=== PATIENT | female | born 1950 | race Caucasian/White ===

== ENCOUNTER 2024-01-08 11:46 | Inpatient (IN) | payer MEDICARE, BC ==
[2024-01-08 12:39] LABS: BASOPHILS ABSOLUTE AUTO 0.03 10^3/uL (0.00-0.50); BASOPHILS PERCENT AUTO 0.2 % (0-1); EOSINOPHILS ABSOLUTE AUTO 0.01 10^3/uL (0.00-1.50); EOSINOPHILS PERCENT AUTO 0.1 % (0-6); HEMATOCRIT 44.5 % (37.0-47.0); HEMOGLOBIN 14.1 g/dL (12.0-16.0); IMMATURE GRAN ABSOLUTE AUTO 0.04 10^3/uL (0.00-0.49); IMMATURE GRAN PERCENT AUTO 0.3 % (0.0-4.9); LYMPHOCYTES ABSOLUTE AUTO 0.79 10^3/uL (0.60-5.00); MEAN CORPUSCULAR HGB CONC 31.7 g/dL (32.0-36.0); MEAN CORPUSCULAR VOLUME 100.9 fL (83.0-97.0); MONOCYTES ABSOLUTE AUTO 1.08 10^3/uL (0.00-1.50); MONOCYTES PERCENT AUTO 8.3 % (0-10); NEUTROPHILS ABSOLUTE AUTO 11.11 x10^3/uL (1.80-8.00); NEUTROPHILS PERCENT AUTO 85.1 % (41-71); PLATELET COUNT,PLT 218 10^3/uL (150-400); RED BLOOD CELL COUNT 4.41 x10^6/uL (4.00-5.50); WHITE BLOOD CELL COUNT,WBC 13.1 10^3/uL (4.0-11.0)
[2024-01-08 12:55] LABS: ALBUMIN 3.9 g/dL (3.4-5.0); BILIRUBIN TOTAL 0.6 mg/dL (0.0-1.0); CALCIUM 8.9 mg/dL (8.4-10.1); CREATININE 0.9 mg/dL (0.6-1.0); EST CRCL DRUG DOSING (CG) 45.16 mL/min; MAGNESIUM 2.1 mg/dL (1.8-2.4); POTASSIUM,K 4.7 mEq/L (3.5-5.0); PROTEIN TOTAL,TP 8.8 g/dL (6.4-8.2)
[2024-01-08 13:08] LABS: APPEARANCE,URINE CLEAR (CLEAR); BILIRUBIN,URINE NEGATIVE (NEGATIVE); COLOR,URINE YELLOW (YELLOW); GLUCOSE,URINE NEGATIVE (NEGATIVE); KETONES,URINE NEGATIVE (NEGATIVE); LEUKOCYTE ESTERASE,URINE NEGATIVE (NEGATIVE); NITRITE,URINE NEGATIVE (NEGATIVE); OCCULT BLOOD,URINE SMALL (NEGATIVE); PROTEIN,URINE 100 mg/dL (NEGATIVE)
[2024-01-08 13:31] LABS: BACTERIA,URINE OCCASIONAL /HPF (NOT SEEN); EPITHELIAL CELLS,URINE OCCASIONAL /HPF (NOT SEEN); MUCUS,URINE MODERATE /HPF (NOT SEEN); WBC,URINE 0-5 /HPF (0-5)
[2024-01-08] MEDS: Sodium Chloride 0.9% 1,000 ML IV ONE (13:53)
[2024-01-08] MEDS: Piperacillin/Tazobactam 4.5 GM in Sodium Chloride 0.9% 100 ML IV ONE (14:00)
[2024-01-08] MEDS: Clindamycin Phosphate in D5W 600 MG in Premix Bag 1 BAG IV ONE (14:05)
[2024-01-08] MEDS: Sodium Chloride 0.9% 500 ML IV SCH (14:45)
[2024-01-08] MEDS ORDERED: Polyethylene Glycol 3350 Powder 17 GM Packet PO PRN (14:49)
[2024-01-08] MEDS ORDERED: Ondansetron 4 MG/2 ML SDV IV PRN (14:49)
[2024-01-08] MEDS ORDERED: Docusate Sodium 100 MG Cap PO PRN (14:49)
[2024-01-08] MEDS: Acetaminophen 325 MG Tab PO PRN (17:20)
[2024-01-08] MEDS: Sodium Chloride 0.9% 1,000 ML IV SCH (19:30)
[2024-01-08] MEDS: Melatonin 3 MG Tab PO SCH (19:37)
[2024-01-08] MEDS: Docusate Sodium 100 MG Cap PO SCH (19:37)
[2024-01-08] MEDS: Non-Formulary Medication 1 Each (Alendronate Sodium [Alendronate Sodium] 70 MG Tablet) PO SCH (21:12)
[2024-01-08] MEDS: Piperacillin/Tazobactam 4.5 GM in Sodium Chloride 0.9% 100 ML IV SCH (21:39)
[2024-01-09] MEDS: Acetaminophen 650 MG Supp RECTAL PRN (03:52)
[2024-01-09 07:36] LABS: BASOPHILS ABSOLUTE AUTO 0.03 10^3/uL (0.00-0.50); BASOPHILS PERCENT AUTO 0.4 % (0-1); HEMATOCRIT 39.2 % (37.0-47.0); HEMOGLOBIN 12.4 g/dL (12.0-16.0); IMMATURE GRAN ABSOLUTE AUTO 0.03 10^3/uL (0.00-0.49); IMMATURE GRAN PERCENT AUTO 0.4 % (0.0-4.9); LYMPHOCYTES ABSOLUTE AUTO 0.84 10^3/uL (0.60-5.00); LYMPHOCYTES PERCENT AUTO 10.9 % (24-44); MEAN CORPUSCULAR HEMOGLOBIN 31.7 pg (27.0-32.0); MEAN CORPUSCULAR HGB CONC 31.6 g/dL (32.0-36.0); MEAN CORPUSCULAR VOLUME 100.3 fL (83.0-97.0); MONOCYTES ABSOLUTE AUTO 0.66 10^3/uL (0.00-1.50); MONOCYTES PERCENT AUTO 8.6 % (0-10); NEUTROPHILS ABSOLUTE AUTO 6.14 x10^3/uL (1.80-8.00); NEUTROPHILS PERCENT AUTO 79.7 % (41-71); PLATELET COUNT,PLT 213 10^3/uL (150-400); RED BLOOD CELL COUNT 3.91 x10^6/uL (4.00-5.50); WHITE BLOOD CELL COUNT,WBC 7.7 10^3/uL (4.0-11.0)
[2024-01-09 07:45] LABS: CALCIUM 8.2 mg/dL (8.4-10.1); CREATININE 0.8 mg/dL (0.6-1.0); EST CRCL DRUG DOSING (CG) 40.38 mL/min; POTASSIUM,K 3.5 mEq/L (3.5-5.0)
[2024-01-09] MEDS: Cholecalciferol (Vitamin D3) 25 MCG Tab PO SCH (08:25)
[2024-01-09] MEDS: QUEtiapine 25 MG Tab PO SCH ×2 (08:25→12:07)
[2024-01-09] MEDS: Propranolol 10 MG Tab PO SCH (08:25)
[2024-01-09] MEDS: traZODone 50 MG Tab PO SCH ×2 (08:25→20:08)
[2024-01-09] MEDS: Aspirin 81 MG Tab.EC PO SCH (08:26)
[2024-01-09] MEDS: Oxybutynin 5 MG Tab.ER PO SCH (08:26)
[2024-01-09] MEDS: Ascorbic Acid 500 MG Tab PO SCH (08:27)
[2024-01-09] MEDS ORDERED: Bisacodyl 10 MG Supp RECTAL PRN (10:45)
[2024-01-09] MEDS: Donepezil 5 MG Tab PO SCH (12:00)
[2024-01-09] MEDS: VANCOmycin 1 GM/200 ML 1 GM in Premix Bag 1 BAG IV SCH (12:01)
[2024-01-09] MEDS: Enoxaparin 40 MG/0.4 ML Syringe SUBCUT SCH (12:06)
[2024-01-09] MEDS: Gabapentin 300 MG Cap PO SCH (14:13)
[2024-01-09] MEDS: Acetaminophen 500 MG Tab PO SCH (14:13)
[2024-01-09] MEDS: Memantine 10 MG Tab PO SCH (20:08)
[2024-01-09] MEDS: risperiDONE 1 MG Tab PO SCH (20:08)
[2024-01-10] MEDS: amLODIPine 2.5 MG Tab PO SCH (07:38)
[2024-01-10] MEDS: Cyanocobalamin (Vitamin B12) 1,000 MCG Tab PO SCH (07:39)
[2024-01-10] MEDS: Sertraline 100 MG Tab PO SCH (07:42)
[2024-01-10] MEDS: Multivitamin Tab PO SCH (07:43)
[2024-01-10 07:58] LABS: BASOPHILS ABSOLUTE AUTO 0.07 10^3/uL (0.00-0.50); BASOPHILS PERCENT AUTO 0.7 % (0-1); EOSINOPHILS ABSOLUTE AUTO 0.17 10^3/uL (0.00-1.50); EOSINOPHILS PERCENT AUTO 1.7 % (0-6); HEMOGLOBIN 10.6 g/dL (12.0-16.0); IMMATURE GRAN ABSOLUTE AUTO 0.02 10^3/uL (0.00-0.49); IMMATURE GRAN PERCENT AUTO 0.2 % (0.0-4.9); LYMPHOCYTES PERCENT AUTO 11.9 % (24-44); MEAN CORPUSCULAR HEMOGLOBIN 31.7 pg (27.0-32.0); MEAN CORPUSCULAR HGB CONC 31.2 g/dL (32.0-36.0); MEAN CORPUSCULAR VOLUME 101.8 fL (83.0-97.0); MONOCYTES ABSOLUTE AUTO 0.97 10^3/uL (0.00-1.50); MONOCYTES PERCENT AUTO 9.7 % (0-10); NEUTROPHILS ABSOLUTE AUTO 7.62 x10^3/uL (1.80-8.00); NEUTROPHILS PERCENT AUTO 75.8 % (41-71); PLATELET COUNT,PLT 197 10^3/uL (150-400); RED BLOOD CELL COUNT 3.34 x10^6/uL (4.00-5.50); WHITE BLOOD CELL COUNT,WBC 10.1 10^3/uL (4.0-11.0)
[2024-01-10 08:21] LABS: C-REACTIVE PROTEIN 0.51 mg/dL (<=0.50); CALCIUM 7.8 mg/dL (8.4-10.1); CREATININE 0.7 mg/dL (0.6-1.0); EST CRCL DRUG DOSING (CG) 46.15 mL/min; POTASSIUM,K 3.2 mEq/L (3.5-5.0)
[2024-01-10] MEDS: VANCOmycin 1.5 GM/300 ML 1.5 GM in Premix Bag 1 BAG IV SCH (11:40)
[2024-01-10] MEDS ORDERED: VANCOmycin 1.25 GM/250 ML 1.25 GM in Premix Bag 1 BAG IV SCH (12:00)
[2024-01-10] MEDS: Sodium Chloride 0.9% 1,000 ML IV ONE (13:37)
[2024-01-10] MEDS: Potassium Chloride Riders 20 MEQ in Premix Bag 1 BAG IV SCH (13:38)
[2024-01-10] MEDS: Potassium Chloride 20 MEQ Tab.ER PO ONE (14:14)
[2024-01-11 07:55] LABS: BASOPHILS ABSOLUTE AUTO 0.06 10^3/uL (0.00-0.50); BASOPHILS PERCENT AUTO 0.7 % (0-1); EOSINOPHILS ABSOLUTE AUTO 0.22 10^3/uL (0.00-1.50); EOSINOPHILS PERCENT AUTO 2.4 % (0-6); HEMATOCRIT 35.3 % (37.0-47.0); HEMOGLOBIN 11.2 g/dL (12.0-16.0); IMMATURE GRAN ABSOLUTE AUTO 0.04 10^3/uL (0.00-0.49); IMMATURE GRAN PERCENT AUTO 0.4 % (0.0-4.9); LYMPHOCYTES ABSOLUTE AUTO 0.96 10^3/uL (0.60-5.00); LYMPHOCYTES PERCENT AUTO 10.6 % (24-44); MEAN CORPUSCULAR HEMOGLOBIN 32.1 pg (27.0-32.0); MEAN CORPUSCULAR HGB CONC 31.7 g/dL (32.0-36.0); MEAN CORPUSCULAR VOLUME 101.1 fL (83.0-97.0); MONOCYTES ABSOLUTE AUTO 0.67 10^3/uL (0.00-1.50); MONOCYTES PERCENT AUTO 7.4 % (0-10); NEUTROPHILS ABSOLUTE AUTO 7.12 x10^3/uL (1.80-8.00); NEUTROPHILS PERCENT AUTO 78.5 % (41-71); PLATELET COUNT,PLT 198 10^3/uL (150-400); RED BLOOD CELL COUNT 3.49 x10^6/uL (4.00-5.50); WHITE BLOOD CELL COUNT,WBC 9.1 10^3/uL (4.0-11.0)
[2024-01-11 08:00] LABS: C-REACTIVE PROTEIN 2.05 mg/dL (<=0.50); CALCIUM 8.1 mg/dL (8.4-10.1); CREATININE 0.7 mg/dL (0.6-1.0); EST CRCL DRUG DOSING (CG) 46.15 mL/min; POTASSIUM,K 3.5 mEq/L (3.5-5.0)
[2024-01-11 08:47] VITALS: PULSE 68
[2024-01-11 08:48] VITALS: BP 176/77
== END 2024-01-11 11:15 | disposition home or self-care (01) | DRG 603 ==
LOC: CC.ED 11:46 → CC.MS 13:42 → MERGE 13:42 → UNDOADMIN 14:24 → CC.MS 14:24
PROVIDERS: ADMIT Nurse Practitioner; ATTEND Nurse Practitioner
DX: L03.213 Periorbital cellulitis (principal); E87.20 Acidosis, unspecified; F03.90 Unspecified dementia, unspecified severity, without behavioral disturbance, psychotic disturbance, mood disturbance, and anxiety; D72.829 Elevated white blood cell count, unspecified; E87.6 Hypokalemia; Z88.5 Allergy status to narcotic agent; Z88.8 Allergy status to other drugs, medicaments and biological substances; Z79.82 Long term (current) use of aspirin; Z79.899 Other long term (current) drug therapy
CPT/HCPCS: 36415; 70450; 71045; 80048; 80053; 80202; 81001; 83605; 83735; 84484; 85025; 86140; 87040; 93005; 93010; 99223; 99232; 99233; 99238; 99285; A9270-GY; J1650; J2543; J3370; J3480; J3490; J7030; J7040; J7050

== ENCOUNTER 2024-10-17 13:35 | Inpatient (IN) | payer MEDICARE, BC ==
[2024-10-17 13:59] LABS: BASOPHILS ABSOLUTE AUTO 0.02 10^3/uL (0.00-0.50); BASOPHILS PERCENT AUTO 0.2 % (0-1); HEMATOCRIT 43.7 % (37.0-47.0); HEMOGLOBIN 13.5 g/dL (12.0-16.0); IMMATURE GRAN ABSOLUTE AUTO 0.08 10^3/uL (0.00-0.49); IMMATURE GRAN PERCENT AUTO 0.9 % (0.0-4.9); LYMPHOCYTES ABSOLUTE AUTO 0.26 10^3/uL (0.60-5.00); LYMPHOCYTES PERCENT AUTO 2.8 % (24-44); MEAN CORPUSCULAR HEMOGLOBIN 30.3 pg (27.0-32.0); MEAN CORPUSCULAR HGB CONC 30.9 g/dL (32.0-36.0); MEAN CORPUSCULAR VOLUME 98.2 fL (83.0-97.0); MONOCYTES ABSOLUTE AUTO 0.45 10^3/uL (0.00-1.50); MONOCYTES PERCENT AUTO 4.8 % (0-10); NEUTROPHILS ABSOLUTE AUTO 8.57 x10^3/uL (1.80-8.00); NEUTROPHILS PERCENT AUTO 91.3 % (41-71); PLATELET COUNT,PLT 200 10^3/uL (150-400); RED BLOOD CELL COUNT 4.45 x10^6/uL (4.00-5.50); WHITE BLOOD CELL COUNT,WBC 9.4 10^3/uL (4.0-11.0)
[2024-10-17] MEDS: Acetaminophen 650 MG Supp RECTAL ONE (14:05)
[2024-10-17] MEDS: Sodium Chloride 0.9% 1,000 ML IV ONE (14:05)
[2024-10-17] MEDS: cefTRIAXone 1 GM Vial IVPUSH SCH (14:05)
[2024-10-17 14:13] LABS: ALANINE AMINOTRANSFERASE,ALT 19 U/L (12-78); ALBUMIN 3.3 g/dL (3.4-5.0); ALKALINE PHOSPHATASE 84 U/L (46-116); ASPARTATE AMNIOTRANSFERASE,AST 23 U/L (15-37); BILIRUBIN TOTAL 0.5 mg/dL (0.0-1.0); BLOOD UREA NITROGEN,BUN 34 mg/dL (7-18); CALCIUM 10.1 mg/dL (8.4-10.1); CARBON DIOXIDE,CO2 29 mmol/L (21-32); CHLORIDE,CL 108 mEq/L (98-106); CREATININE 1.2 mg/dL (0.6-1.0); GLUCOSE RANDOM 134 mg/dL (75-99); POTASSIUM,K 3.2 mEq/L (3.5-5.0); PROTEIN TOTAL,TP 9.6 g/dL (6.4-8.2); SODIUM,NA 151 mEq/L (136-145)
[2024-10-17 14:24] LABS: C-REACTIVE PROTEIN 27.17 mg/dL (<=0.50); ESTIMATED GFR 48 mL/min (>=60)
[2024-10-17] MEDS ORDERED: Ondansetron 4 MG/2 ML SDV IV PRN (15:34)
[2024-10-17] MEDS ORDERED: Acetaminophen 325 MG Tab PO PRN (15:34)
[2024-10-17] MEDS ORDERED: Ondansetron 4 MG Tab.DIS PO PRN (15:34)
[2024-10-17] MEDS ORDERED: Sodium Chloride 0.9% 10 ML Syringe FLUSH PRN (15:34)
[2024-10-17] MEDS ORDERED: MENTHOL TOP PRN (15:34)
[2024-10-17] MEDS: Piperacillin/Tazobactam 4.5 GM in Sodium Chloride 0.9% 100 ML IV ONE (16:04)
[2024-10-17] MEDS: Sodium Chloride 0.45% with KCl 1,000 ML IV SCH (16:05)
[2024-10-17] MEDS: methylPREDNISolone Sodium Succinate 40 MG/1 ML SDV IVPUSH SCH (18:54)
[2024-10-17] MEDS: Albuterol/Ipratropium 3.0-0.5 MG/3 ML Neb Soln NEB SCH (20:58)
[2024-10-17] MEDS: Hyoscyamine 0.125 MG Tab.SL SL SCH (21:00)
[2024-10-17] MEDS: Piperacillin/Tazobactam 4.5 GM in Sodium Chloride 0.9% 100 ML IV SCH (21:03)
[2024-10-17] MEDS: risperiDONE 1 MG Tab PO SCH (21:04)
[2024-10-17] MEDS: Memantine 10 MG Tab PO SCH (21:05)
[2024-10-17] MEDS: QUEtiapine 25 MG Tab PO SCH (21:05)
[2024-10-17] MEDS: Gabapentin 300 MG Cap PO SCH (21:06)
[2024-10-17] MEDS: Melatonin 3 MG Tab PO SCH (21:06)
[2024-10-17] MEDS: Acetaminophen 650 MG Supp RECTAL PRN (21:08)
[2024-10-18] MEDS: Albuterol/Ipratropium 3.0-0.5 MG/3 ML Neb Soln NEB PRN (01:04)
[2024-10-18 07:54] LABS: BASOPHILS ABSOLUTE AUTO 0.02 10^3/uL (0.00-0.50); BASOPHILS PERCENT AUTO 0.2 % (0-1); HEMATOCRIT 36.2 % (37.0-47.0); HEMOGLOBIN 11.3 g/dL (12.0-16.0); IMMATURE GRAN ABSOLUTE AUTO 0.08 10^3/uL (0.00-0.49); IMMATURE GRAN PERCENT AUTO 0.9 % (0.0-4.9); LYMPHOCYTES ABSOLUTE AUTO 0.35 10^3/uL (0.60-5.00); LYMPHOCYTES PERCENT AUTO 3.8 % (24-44); MEAN CORPUSCULAR HGB CONC 31.2 g/dL (32.0-36.0); MEAN CORPUSCULAR VOLUME 99.2 fL (83.0-97.0); MONOCYTES ABSOLUTE AUTO 0.54 10^3/uL (0.00-1.50); MONOCYTES PERCENT AUTO 5.8 % (0-10); NEUTROPHILS PERCENT AUTO 89.3 % (41-71); PLATELET COUNT,PLT 169 10^3/uL (150-400); RED BLOOD CELL COUNT 3.65 x10^6/uL (4.00-5.50); WHITE BLOOD CELL COUNT,WBC 9.3 10^3/uL (4.0-11.0)
[2024-10-18 08:18] LABS: ALBUMIN 2.5 g/dL (3.4-5.0); BILIRUBIN TOTAL 0.3 mg/dL (0.0-1.0); C-REACTIVE PROTEIN 23.99 mg/dL (<=0.50); CALCIUM 8.6 mg/dL (8.4-10.1); EST CRCL DRUG DOSING (CG) 31.6 mL/min; POTASSIUM,K 3.5 mEq/L (3.5-5.0); PROTEIN TOTAL,TP 7.7 g/dL (6.4-8.2)
[2024-10-18] MEDS: Propranolol 10 MG Tab PO SCH (08:31)
[2024-10-18] MEDS: Aspirin 81 MG Tab.EC PO SCH (08:31)
[2024-10-18] MEDS: Donepezil 5 MG Tab PO SCH ×2 (08:31→11:21)
[2024-10-18] MEDS: Sertraline 100 MG Tab PO SCH (08:31)
[2024-10-18] MEDS: QUEtiapine 25 MG Tab PO SCH ×2 (08:33→11:21)
[2024-10-18] MEDS: Enoxaparin 30 MG/0.3 ML Syringe SUBCUT SCH (08:33)
[2024-10-18] MEDS: Furosemide 20 MG/2 ML VIAL IVPUSH ONE (11:21)
[2024-10-18] MEDS ORDERED: cefTRIAXone 1 GM Vial IVPUSH SCH (12:00)
[2024-10-18 12:37] LABS: CORONAVIRUS COVID-19 NAA NEGATIVE (NEGATIVE); INFLUENZA A NAA NEGATIVE (NEGATIVE); INFLUENZA B NAA NEGATIVE (NEGATIVE)
[2024-10-19 07:28] LABS: BASOPHILS ABSOLUTE AUTO 0.01 10^3/uL (0.00-0.50); BASOPHILS PERCENT AUTO 0.1 % (0-1); EOSINOPHILS ABSOLUTE AUTO 0.02 10^3/uL (0.00-1.50); EOSINOPHILS PERCENT AUTO 0.1 % (0-6); HEMATOCRIT 41.4 % (37.0-47.0); HEMOGLOBIN 12.7 g/dL (12.0-16.0); IMMATURE GRAN ABSOLUTE AUTO 0.21 10^3/uL (0.00-0.49); IMMATURE GRAN PERCENT AUTO 1.5 % (0.0-4.9); LYMPHOCYTES ABSOLUTE AUTO 0.73 10^3/uL (0.60-5.00); LYMPHOCYTES PERCENT AUTO 5.3 % (24-44); MEAN CORPUSCULAR HEMOGLOBIN 30.8 pg (27.0-32.0); MEAN CORPUSCULAR HGB CONC 30.7 g/dL (32.0-36.0); MEAN CORPUSCULAR VOLUME 100.2 fL (83.0-97.0); MONOCYTES ABSOLUTE AUTO 0.67 10^3/uL (0.00-1.50); MONOCYTES PERCENT AUTO 4.9 % (0-10); NEUTROPHILS ABSOLUTE AUTO 12.03 x10^3/uL (1.80-8.00); NEUTROPHILS PERCENT AUTO 88.1 % (41-71); PLATELET COUNT,PLT 218 10^3/uL (150-400); RED BLOOD CELL COUNT 4.13 x10^6/uL (4.00-5.50); WHITE BLOOD CELL COUNT,WBC 13.7 10^3/uL (4.0-11.0)
[2024-10-19 07:42] LABS: ALBUMIN 2.6 g/dL (3.4-5.0); BILIRUBIN TOTAL 0.4 mg/dL (0.0-1.0); C-REACTIVE PROTEIN 14.8 mg/dL (<=0.50); CALCIUM 8.8 mg/dL (8.4-10.1); CREATININE 1.1 mg/dL (0.6-1.0); EST CRCL DRUG DOSING (CG) 27.92 mL/min; POTASSIUM,K 4.1 mEq/L (3.5-5.0)
[2024-10-19] MEDS: Furosemide 20 MG/2 ML VIAL IVPUSH ONE (12:42)
[2024-10-19] MEDS: Oxyquinoline/Emollient 0.3% Oint 4 OZ Canister TOP PRN (23:54)
[2024-10-20] MEDS: Loperamide 2 MG Cap PO PRN (05:42)
[2024-10-20 07:22] LABS: ALBUMIN 2.5 g/dL (3.4-5.0); BILIRUBIN TOTAL 0.3 mg/dL (0.0-1.0); C-REACTIVE PROTEIN 6.67 mg/dL (<=0.50); CALCIUM 9.1 mg/dL (8.4-10.1); CREATININE 0.9 mg/dL (0.6-1.0); EST CRCL DRUG DOSING (CG) 34.83 mL/min; PROTEIN TOTAL,TP 7.8 g/dL (6.4-8.2)
[2024-10-20 07:33] LABS: POTASSIUM,K 3.6 mEq/L (3.5-5.0)
[2024-10-20 07:51] LABS: BASOPHILS ABSOLUTE AUTO 0.02 10^3/uL (0.00-0.50); BASOPHILS PERCENT AUTO 0.2 % (0-1); HEMATOCRIT 41.6 % (37.0-47.0); HEMOGLOBIN 12.6 g/dL (12.0-16.0); IMMATURE GRAN ABSOLUTE AUTO 0.27 10^3/uL (0.00-0.49); IMMATURE GRAN PERCENT AUTO 2.4 % (0.0-4.9); LYMPHOCYTES ABSOLUTE AUTO 0.94 10^3/uL (0.60-5.00); LYMPHOCYTES PERCENT AUTO 8.2 % (24-44); MEAN CORPUSCULAR HEMOGLOBIN 30.5 pg (27.0-32.0); MEAN CORPUSCULAR HGB CONC 30.3 g/dL (32.0-36.0); MEAN CORPUSCULAR VOLUME 100.7 fL (83.0-97.0); MONOCYTES ABSOLUTE AUTO 0.93 10^3/uL (0.00-1.50); MONOCYTES PERCENT AUTO 8.1 % (0-10); NEUTROPHILS PERCENT AUTO 81.1 % (41-71); PLATELET COUNT,PLT 264 10^3/uL (150-400); RED BLOOD CELL COUNT 4.13 x10^6/uL (4.00-5.50); WHITE BLOOD CELL COUNT,WBC 11.5 10^3/uL (4.0-11.0)
[2024-10-20] MEDS: Furosemide 40 MG/4 ML VIAL IVPUSH SCH (10:37)
[2024-10-20] MEDS: Bismuth Subsalicylate 262 MG/15 ML Susp 236 ML Bottle PO PRN (20:51)
[2024-10-21 07:37] LABS: CALCIUM 9.7 mg/dL (8.4-10.1); CREATININE 1.3 mg/dL (0.6-1.0); EST CRCL DRUG DOSING (CG) 24.33 mL/min; MAGNESIUM 2.4 mg/dL (1.8-2.4)
[2024-10-21] MEDS: Nystatin Crm 30 GM Tube TOP SCH (07:43)
[2024-10-21 08:09] LABS: POTASSIUM,K 3.3 mEq/L (3.5-5.0)
[2024-10-21 08:10] LABS: BASOPHILS ABSOLUTE AUTO 0.01 10^3/uL (0.00-0.50); BASOPHILS PERCENT AUTO 0.1 % (0-1); HEMATOCRIT 43.2 % (37.0-47.0); IMMATURE GRAN ABSOLUTE AUTO 0.33 10^3/uL (0.00-0.49); IMMATURE GRAN PERCENT AUTO 2.1 % (0.0-4.9); LYMPHOCYTES ABSOLUTE AUTO 1.38 10^3/uL (0.60-5.00); LYMPHOCYTES PERCENT AUTO 8.9 % (24-44); MEAN CORPUSCULAR HEMOGLOBIN 30.4 pg (27.0-32.0); MEAN CORPUSCULAR HGB CONC 30.1 g/dL (32.0-36.0); MEAN CORPUSCULAR VOLUME 100.9 fL (83.0-97.0); MONOCYTES ABSOLUTE AUTO 1.15 10^3/uL (0.00-1.50); MONOCYTES PERCENT AUTO 7.4 % (0-10); NEUTROPHILS ABSOLUTE AUTO 12.64 x10^3/uL (1.80-8.00); NEUTROPHILS PERCENT AUTO 81.5 % (41-71); PLATELET COUNT,PLT 291 10^3/uL (150-400); RED BLOOD CELL COUNT 4.28 x10^6/uL (4.00-5.50); WHITE BLOOD CELL COUNT,WBC 15.5 10^3/uL (4.0-11.0)
[2024-10-21] MEDS: Potassium Chloride 20 MEQ Packet PO ONE (12:00)
[2024-10-21 15:28] VITALS: BP 134/68; PULSE 72
== END 2024-10-21 16:10 | disposition home or self-care (01) | DRG 195 ==
LOC: CC.ED 13:35 → CC.MS 14:30 → UNDOADMIN 14:30 → CC.MS 14:31 → UNDOADMIN 15:27 → CC.MS 15:27
PROVIDERS: ADMIT Physician Assistant Medical; ATTEND Physician Assistant Medical
DX: J18.9 Pneumonia, unspecified organism (principal); H26.9 Unspecified cataract; E87.6 Hypokalemia; R09.02 Hypoxemia; E78.00 Pure hypercholesterolemia, unspecified; K58.9 Irritable bowel syndrome, unspecified; I10 Essential (primary) hypertension; K21.9 Gastro-esophageal reflux disease without esophagitis; M54.9 Dorsalgia, unspecified; G89.29 Other chronic pain; G30.9 Alzheimer's disease, unspecified; F02.80 Dementia in other diseases classified elsewhere, unspecified severity, without behavioral disturbance, psychotic disturbance, mood disturbance, and anxiety; M85.80 Other specified disorders of bone density and structure, unspecified site; E86.0 Dehydration; Z88.5 Allergy status to narcotic agent; Z88.8 Allergy status to other drugs, medicaments and biological substances; Z79.82 Long term (current) use of aspirin; Z79.899 Other long term (current) drug therapy; Z20.822 Contact with and (suspected) exposure to COVID-19
CPT/HCPCS: 0240U; 36415; 71045; 80048; 80053; 83605; 83735; 83880; 85025; 86140; 87040; 87045; 87046; 87428-QW; 87493; 94640; 96374; 99223; 99232; 99233; 99238; 99285-25; A9270-GY; J0696; J1650; J1940; J2543; J2919; J3480; J3490; J7030; J7620-GY

== ENCOUNTER 2024-10-23 12:05 | Inpatient (IN) | payer MEDICARE, BC, MEDICAID ==
[2024-10-23 12:34] LABS: HEMATOCRIT 50.5 % (37.0-47.0); HEMOGLOBIN 15.2 g/dL (12.0-16.0); MEAN CORPUSCULAR HEMOGLOBIN 30.3 pg (27.0-32.0); MEAN CORPUSCULAR HGB CONC 30.1 g/dL (32.0-36.0); MEAN CORPUSCULAR VOLUME 100.6 fL (83.0-97.0); PLATELET COUNT,PLT 344 10^3/uL (150-400); RED BLOOD CELL COUNT 5.02 x10^6/uL (4.00-5.50)
[2024-10-23] MEDS: Albuterol/Ipratropium 3.0-0.5 MG/3 ML Neb Soln NEB ONE (12:37)
[2024-10-23] MEDS: Albuterol 0.083% 2.5 MG/3 ML Neb Soln NEB PRN (12:40)
[2024-10-23 12:48] LABS: WHITE BLOOD CELL COUNT,WBC 29.7 10^3/uL (4.0-11.0)
[2024-10-23 12:52] LABS: ALANINE AMINOTRANSFERASE,ALT 157 U/L (12-78); ALBUMIN 2.6 g/dL (3.4-5.0); ALKALINE PHOSPHATASE 128 U/L (46-116); ASPARTATE AMNIOTRANSFERASE,AST 53 U/L (15-37); BILIRUBIN TOTAL 0.5 mg/dL (0.0-1.0); CALCIUM 10.5 mg/dL (8.4-10.1); CARBON DIOXIDE,CO2 24 mmol/L (21-32); CREATININE 2.4 mg/dL (0.6-1.0); GLUCOSE RANDOM 201 mg/dL (75-99)
[2024-10-23 13:10] LABS: BLOOD UREA NITROGEN,BUN 77 mg/dL (7-18); ESTIMATED GFR 21 mL/min (>=60)
[2024-10-23 13:21] LABS: LYMPHOCYTES ABSOLUTE MAN 0.59 10^3/uL (1.00-4.80); LYMPHOCYTES PERCENT MAN 2 % (21-55); MONOCYTES ABSOLUTE MAN 0.59 10^3/uL (0.00-0.80); MONOCYTES PERCENT MAN 2 % (2-12); NEUTROPHILS ABSOLUTE MAN 28.51 10^3/uL (1.80-7.00); SEG NEUTROPHILS PERCENT MAN 96 % (35-85)
[2024-10-23] MEDS: VANCOmycin 1 GM/200 ML 1 GM in Premix Bag 1 BAG IV SCH (14:31)
[2024-10-23] MEDS: Sodium Chloride 0.9% 1,000 ML IV ONE (14:31)
[2024-10-23] MEDS: Doxycycline 100 MG in Sodium Chloride 0.9% 100 ML IV SCH (14:32)
[2024-10-23] MEDS: Cefepime 2 GM in Sodium Chloride 0.9% 100 ML IV ONE (14:32)
[2024-10-23] MEDS: Albuterol/Ipratropium 3.0-0.5 MG/3 ML Neb Soln ONE ×2 (14:33)
[2024-10-23] MEDS ORDERED: Acetaminophen 325 MG Tab PO PRN (15:07)
[2024-10-23] MEDS ORDERED: Docusate Sodium 100 MG Cap PO PRN (15:07)
[2024-10-23] MEDS ORDERED: Cefepime 1 GM in Sodium Chloride 0.9% 100 ML IV SCH (15:07)
[2024-10-23] MEDS ORDERED: MENTHOL TOP PRN (15:07)
[2024-10-23] MEDS ORDERED: Sodium Chloride 0.9% 1,000 ML IV SCH (15:07)
[2024-10-23] MEDS ORDERED: Polyethylene Glycol 3350 Powder 17 GM Packet PO PRN (15:07)
[2024-10-23] MEDS ORDERED: Non-Formulary Medication 1 Each (Alendronate Sodium [Alendronate Sodium] 70 MG Tablet) PO SCH (15:07)
[2024-10-23 15:13] LABS: APPEARANCE,URINE CLOUDY (CLEAR); BILIRUBIN,URINE NEGATIVE (NEGATIVE); COLOR,URINE YELLOW (YELLOW); GLUCOSE,URINE NEGATIVE (NEGATIVE); KETONES,URINE NEGATIVE (NEGATIVE); LEUKOCYTE ESTERASE,URINE NEGATIVE (NEGATIVE); NITRITE,URINE NEGATIVE (NEGATIVE); OCCULT BLOOD,URINE NEGATIVE (NEGATIVE); PROTEIN,URINE 100 mg/dL (NEGATIVE); UROBILINOGEN,URINE 0.2 EU/dL (0.2-1.0)
[2024-10-23 15:25] LABS: AMORPHOUS SEDIMENT,URINE MODERATE /HPF (NOT SEEN); BACTERIA,URINE FEW /HPF (NOT SEEN); EPITHELIAL CELLS,URINE FEW /HPF (NOT SEEN); GRANULAR CASTS,URINE FEW /LPF (NOT SEEN); RBC,URINE 0-5 /HPF (0-5); WBC,URINE 0-5 /HPF (0-5)
[2024-10-23] MEDS: Albuterol/Ipratropium 3.0-0.5 MG/3 ML Neb Soln NEB SCH (15:32)
[2024-10-23] MEDS: Furosemide 40 MG/4 ML VIAL IVPUSH ONE (15:49)
[2024-10-23 16:52] LABS: CHLORIDE,CL 138 mEq/L (98-106); SODIUM,NA 181 mEq/L (136-145)
[2024-10-23 16:55] LABS: CALCIUM 9.8 mg/dL (8.4-10.1); CREATININE 2.5 mg/dL (0.6-1.0); EST CRCL DRUG DOSING (CG) 11.75 mL/min; MAGNESIUM 2.8 mg/dL (1.8-2.4); POTASSIUM,K 3.1 mEq/L (3.5-5.0)
[2024-10-23] MEDS: Potassium Chloride 20 MEQ Packet PO SCH (17:30)
[2024-10-23] MEDS: Sodium Chloride 0.45% 1,000 ML IV SCH (18:23)
[2024-10-23] MEDS: Potassium Chloride Riders 20 MEQ in Premix Bag 1 BAG IV ONE ×2 (18:23→20:23)
[2024-10-23] MEDS: Gabapentin 300 MG Cap PO SCH (21:10)
[2024-10-23] MEDS: Melatonin 3 MG Tab PO SCH (21:10)
[2024-10-23] MEDS: Memantine 10 MG Tab PO SCH (21:10)
[2024-10-23] MEDS: Hyoscyamine 0.125 MG Tab.SL SL SCH (21:10)
[2024-10-23] MEDS: Lactobacillus Rhamnosus GG (Probiotic) Cap PO SCH (21:10)
[2024-10-23] MEDS: QUEtiapine 25 MG Tab PO SCH (21:11)
[2024-10-23] MEDS: risperiDONE 1 MG Tab PO SCH (21:11)
[2024-10-24] MEDS: Furosemide 40 MG/4 ML VIAL IVPUSH SCH (07:10)
[2024-10-24] MEDS: Aspirin 81 MG Tab.EC PO SCH (07:36)
[2024-10-24] MEDS: Sertraline 100 MG Tab PO SCH (07:36)
[2024-10-24] MEDS: Donepezil 5 MG Tab PO SCH ×2 (07:36→11:23)
[2024-10-24] MEDS: QUEtiapine 25 MG Tab PO SCH ×2 (07:36→11:23)
[2024-10-24 07:49] LABS: ALBUMIN 2.2 g/dL (3.4-5.0); BILIRUBIN TOTAL 0.4 mg/dL (0.0-1.0); CALCIUM 9.6 mg/dL (8.4-10.1); EST CRCL DRUG DOSING (CG) 10.98 mL/min; MAGNESIUM 2.7 mg/dL (1.8-2.4); POTASSIUM,K 3.4 mEq/L (3.5-5.0); PROTEIN TOTAL,TP 8.1 g/dL (6.4-8.2)
[2024-10-24] MEDS ORDERED: Propranolol 10 MG Tab PO SCH (08:00)
[2024-10-24 08:01] LABS: BASOPHILS ABSOLUTE AUTO 0.02 10^3/uL (0.00-0.50); BASOPHILS PERCENT AUTO 0.1 % (0-1); HEMATOCRIT 46.5 % (37.0-47.0); HEMOGLOBIN 13.9 g/dL (12.0-16.0); IMMATURE GRAN ABSOLUTE AUTO 0.16 10^3/uL (0.00-0.49); IMMATURE GRAN PERCENT AUTO 0.4 % (0.0-4.9); LYMPHOCYTES ABSOLUTE AUTO 0.72 10^3/uL (0.60-5.00); MEAN CORPUSCULAR HEMOGLOBIN 30.7 pg (27.0-32.0); MEAN CORPUSCULAR HGB CONC 29.9 g/dL (32.0-36.0); MEAN CORPUSCULAR VOLUME 102.6 fL (83.0-97.0); MONOCYTES ABSOLUTE AUTO 0.49 10^3/uL (0.00-1.50); MONOCYTES PERCENT AUTO 1.4 % (0-10); NEUTROPHILS ABSOLUTE AUTO 34.36 x10^3/uL (1.80-8.00); NEUTROPHILS PERCENT AUTO 96.1 % (41-71); PLATELET COUNT,PLT 307 10^3/uL (150-400); RED BLOOD CELL COUNT 4.53 x10^6/uL (4.00-5.50)
[2024-10-24 08:04] LABS: C-REACTIVE PROTEIN 32.07 mg/dL (<=0.50); CREATININE 2.7 mg/dL (0.6-1.0)
[2024-10-24 08:22] VITALS: BP 144/91
[2024-10-24 08:25] LABS: WHITE BLOOD CELL COUNT,WBC 35.8 10^3/uL (4.0-11.0)
[2024-10-24 09:03] LABS: VANCOMYCIN RANDOM 25.4
[2024-10-24 11:20] VITALS: PULSE 98
[2024-10-24] MEDS: Cefepime 2 GM Vial IVPUSH SCH (11:28)
[2024-10-24] MEDS: Morphine 2 MG/ML SYRINGE IVPUSH PRN (14:16)
[2024-10-24] MEDS ORDERED: Hyoscyamine 0.125 MG/ML Bottle PO PRN (14:18)
[2024-10-24] MEDS: Morphine 2 MG/ML SYRINGE IVPUSH SCH (19:52)
[2024-10-26] MEDS: LORazepam 2 MG/ML SDV IVPUSH PRN (09:25)
[2024-10-26] MEDS: Acetaminophen 650 MG Supp RECTAL PRN (10:20)
== END 2024-10-26 12:15 | disposition expired | DRG 871 ==
LOC: CC.ED 12:05 → CC.MS 14:09 → UNDOADMIN 14:09 → CC.MS 14:52 → UNDOADMIN 14:52 → UNDODISIN 10-26 12:15
PROVIDERS: ADMIT Nurse Practitioner; ATTEND Nurse Practitioner Family
DX: A41.9 Sepsis, unspecified organism (principal); J18.9 Pneumonia, unspecified organism; F02.84 Dementia in other diseases classified elsewhere, unspecified severity, with anxiety; N17.9 Acute kidney failure, unspecified; E87.20 Acidosis, unspecified; E87.0 Hyperosmolality and hypernatremia; R65.20 Severe sepsis without septic shock; E78.00 Pure hypercholesterolemia, unspecified; H26.9 Unspecified cataract; I10 Essential (primary) hypertension; Z88.5 Allergy status to narcotic agent; K21.9 Gastro-esophageal reflux disease without esophagitis; K58.9 Irritable bowel syndrome, unspecified; G89.29 Other chronic pain; M54.9 Dorsalgia, unspecified; G30.9 Alzheimer's disease, unspecified; Z96.649 Presence of unspecified artificial hip joint; Z88.8 Allergy status to other drugs, medicaments and biological substances; Z79.82 Long term (current) use of aspirin; Z51.5 Encounter for palliative care; Z79.1 Long term (current) use of non-steroidal anti-inflammatories (NSAID); Z79.2 Long term (current) use of antibiotics; Z79.51 Long term (current) use of inhaled steroids; Z79.899 Other long term (current) drug therapy; Z87.440 Personal history of urinary (tract) infections
CPT/HCPCS: 36415; 51702; 71045; 80048; 80053; 80202; 81001; 83605; 83735; 83880; 84484; 85025; 86140; 87040; 87070; 87428-QW; 87899; 93005; 93010; 94640; 96365; 96368; 99223; 99232; 99233; 99238; 99285-25; A9270-GY; J0692; J1940; J2060; J2270; J3372; J3480; J3490; J7030; J7613-GY; J7620-GY